=== PATIENT | female | born 1985 | race American Indian/Alaskan Native ===

== ENCOUNTER 2017-02-10 17:44 | Inpatient (IN) | payer MEDICAID ==
[2017-02-10] MEDS ORDERED: LACTATED RINGERS 2,000 ML ONE (19:14)
[2017-02-10] MEDS ORDERED: POLYCILLIN/NS 2 GM/100 ML 2 GM/100 ML BAG IV ONE ×2 (19:14→19:20)
[2017-02-10] MEDS ORDERED: ePHEDrine SULFATE IV PRN (19:20)
[2017-02-10] MEDS ORDERED: BRETHINE IVP PRN (19:20)
[2017-02-10] MEDS ORDERED: STADOL IV PRN (19:20)
[2017-02-10] MEDS ORDERED: ZOFRAN IV PRN ×2 (19:20→21:20)
[2017-02-10] MEDS ORDERED: SUBLIMAZE IV PRN (19:20)
[2017-02-10] MEDS ORDERED: NARCAN 0.4 MG/1 ML IV PRN (19:20)
[2017-02-10] MEDS ORDERED: MINERAL OIL PO PRN (19:20)
[2017-02-10] MEDS ORDERED: XYLOCAINE 2% INFILTRATI ONE (19:20)
[2017-02-10] MEDS ORDERED: BRETHINE SUB-Q PRN (19:20)
--- NOTE | 2017-02-10 19:54 | History and Physical Report ---
History of Present Illness Date of examination: 02/10/17 Date of admission: 02/10/17 17:45 Chief complaint: contractions History of present illness: Pt is a 31 year old -[place] female at 38w2d who presents with contractions for one hour prior to presentation and advanced cervical dilation of 6 cm. She had SROM while in triage at 1910- clear fluid. She denies vaginal bleeding. She has had care with Dr Elle Read which per pt has been uncomplicated. labs are unavailable at this time. She is GBS unknown. Past History Past Medical History: no pertinent history Past Surgical History: no surgical history Family/Genetic History: other (hypotension ) Social history: no significant social history - Obstetrical History Expected Date of Delivery: 02/22/17 Actual Gestation: 38 Week(s) 2 Day(s) : 7 Para: 5 Hx # Term Pregnancies: 4 Number of Pregnancies: 1 Spontaneous Abortions: 1 Induced : 0 Number of Living Children: 4 Medications and Allergies Allergies Allergy/AdvReac Type Severity Reaction Status Date / Time No Known Allergies Allergy Verified 03/17/16 11:13 Home Medications Medication Instructions Recorded Confirmed Last Taken Type No Known Home Medications [No 03/07/16 02/10/17 Unknown History Reported Home Medications] Active Meds: Active Medications Butorphanol Tartrate (Stadol) 2 mg IV Q2H PRN PRN Reason: Pain , Severe (7-10) Fentanyl (Sublimaze) 100 mcg IV Q2H PRN PRN Reason: Labor Pain Ampicillin Sodium (Polycillin/Ns 1 Gm/50 Ml) 1 gm in 50 mls @ 100 mls/hr IV Q4H FELIPA PRN Reason: Protocol Ampicillin Sodium (Polycillin/Ns 2 Gm/100 Ml) 2 gm in 100 mls @ 100 mls/hr IV ONCE ONE PRN Reason: Protocol Stop: 02/10/17 20:19 Lactated Ringer's (Lactated Ringers) 1,000 mls @ 125 mls/hr IV DIRECT FELIPA Oxytocin/Sodium Chloride (Pitocin/Ns 20 Unit/1000ml Drip) 20 units in 1,000 mls @ 125 mls/hr IV DIRECT FELIPA Mineral Oil (Mineral Oil) 30 ml PO QHS PRN PRN Reason: Constipation Naloxone HCl (Narcan 0.4 Mg/1 Ml) 0.1 mg IV Q2MIN PRN PRN Reason: Res Rate </= 8 or 02 SAT < 92% Ondansetron HCl (Zofran) 4 mg IV Q8H PRN PRN Reason: Nausea And Vomiting Review of Systems All systems: negative - Vital Signs Vital signs: Vital Signs Temp Pulse Resp BP Pulse Ox 97.5 F L 89 18 141/92 97 02/10/17 19:27 02/10/17 19:27 02/10/17 19:27 02/10/17 19:27 02/10/17 19:27 Temp Pulse Resp BP Pulse Ox 97.5 F L 89 18 141/92 97 02/10/17 19:27 02/10/17 19:27 02/10/17 19:27 02/10/17 19:27 02/10/17 19:27 - Physical Exam Breasts: Positive: deferred Cardiovascular: Regular rate Lungs: Positive: Clear to auscultation Abdomen: Positive: soft (gravid ) Genitourinary (Female): Positive: normal external genitalia Uterus: Positive: enlarged (gravid ) Extremities: Positive: normal - Obstetrical FHR: category 2 Uterine Contraction Monitor Mode: External Cervical Dilatation: 7 (per RN ) Cervical Effacement Percentage: 90 station: 0 Uterine Contraction Pattern: Regular Uterine Tone Measurement Phase: Resting Uterine Contraction Intensity: Strong/Firm Results All other labs normal. Assessment and Plan A: IUP at 38w2d Active labor Grandmultiparity GBS unknown P: Admit to labor and delivery GBS prophylaxis Routine intrapartum care
--- NOTE | 2017-02-10 19:59 | Procedure Note ---
OB Delivery Note - Delivery Date of Delivery: 02/10/17 Surgeon: PARISH LION Estimated blood loss: other (400 mL) - Vaginal Delivery presentation: vertex Delivery position: OA Intrapartum events: meconium (terminal meconium ), precipitous labor- <3hr Delivery induction: none Delivery monitor: external FHT, external uterine Route of delivery: Delivery placenta: spontaneous Episiotomy: none Delivery laceration: none, other (vaginal abrasion ) Anesthesia: intravenous Delivery comments: Pt rapidly progressed from 7 cm to complete/complete/+2 and pushed to deliver a viable female via over intact perineum under IV anesthesia. Head delivered rapidly in OA position followed quickly by shoulders and body. Terminal meconium noted. placed on maternal abdomen and bulb suctioned. Cord clamped and cut. Cord blood collected. Placenta delivered spontaneously. Vagina and perineum explored. No lacerations noted. Vaginal abrasion hemostatic. EBL 400 mL. - Infant A at 1 minute: 8 at 5 minutes: 9 Infant Gender: Female (3154g (6lb 15 oz))
[2017-02-10] MEDS ORDERED: LACTATED RINGERS 1,000 ML IV SCH (20:00)
[2017-02-10] MEDS ORDERED: PITOCin/NS 20 UNIT/1000ML DRIP 20 UNITS/1,000 ML BAG IV SCH ×2 (20:00→21:20)
[2017-02-10 20:21] LABS: Hematocrit 31.7 % (30.3-42.9); Hemoglobin 10.3 gm/dl (10.1-14.3); Mean Corpuscular HGB Conc 33 % (30-34); Mean Corpuscular Volume 76 fl (79-97); Platelet Count 190 K/mm3 (140-440); Red Blood Count 4.14 M/mm3 (3.65-5.03); White Blood Count 9.4 K/mm3 (4.5-11.0)
[2017-02-10 20:22] LABS: Mean Corpuscular Hemoglobin 25 pg (28-32)
[2017-02-10] MEDS ORDERED: LANSINOH TP PRN (21:20)
[2017-02-10] MEDS ORDERED: DULCOLAX PR PRN (21:20)
[2017-02-10] MEDS ORDERED: PHENERGAN PR PRN (21:20)
[2017-02-10] MEDS ORDERED: BENADRYL PO PRN (21:20)
[2017-02-10] MEDS ORDERED: TYLENOL PO PRN (21:20)
[2017-02-10] MEDS ORDERED: DERMOPLAST TP PRN (21:20)
[2017-02-10] MEDS ORDERED: SODIUM CHLORIDE FLUSH SYRINGE 10 ML IV NR (21:20)
[2017-02-10] MEDS ORDERED: TUCKS PAD TP PRN (21:20)
[2017-02-10] MEDS ORDERED: PHENERGAN PO PRN (21:20)
[2017-02-10] MEDS: NORCO 5/325 PO PRN (22:24)
[2017-02-10] MEDS: FEOSOL PO SCH (22:25)
[2017-02-10] MEDS ORDERED: POLYCILLIN/NS 1 GM/50 ML 1 GM/50 ML BAG IV SCH (23:30)
[2017-02-11] MEDS: MOTRIN PO SCH ×3 (00:17→18:44)
[2017-02-11] MEDS ORDERED: BOOSTRIX IM ONE (06:00)
[2017-02-11] MEDS ORDERED: M-M-R II VACCINE SUB-Q ONE (06:00)
[2017-02-11 09:30] LABS: Hematocrit 31.1 % (30.3-42.9)
--- NOTE | 2017-02-11 10:18 | Progress Note ---
Assessment and Plan A: PPD#1 s/p at term P: Routine care. Obtain prenatals tomorrow once primary provider returns. Subjective - Subjective Date of service: 02/11/17 Principal diagnosis: s/p at term Interval history: No overnight issues. Patient reports: voiding normally, pain well controlled, ambulating normally : doing well Objective - Vital Signs Latest vital signs: Vital Signs Temp Pulse Pulse Pulse Resp BP BP 02/11/17 07:23 98.5 F 74 18 110/80 02/10/17 20:52 97.7 F 84 18 137/93 02/10/17 20:51 82 137/93 02/10/17 20:46 79 02/10/17 20:41 72 02/10/17 20:36 92 H 143/93 02/10/17 20:31 94 H 02/10/17 20:26 98.3 F 86 96 H 18 130/88 02/10/17 20:21 77 130/88 02/10/17 20:16 76 02/10/17 20:11 98.5 F 89 84 18 137/79 02/10/17 20:06 89 137/79 02/10/17 20:01 81 02/10/17 19:56 98.7 F 87 18 02/10/17 19:51 133/81 02/10/17 19:41 98.5 F 81 18 133/81 02/10/17 19:30 18 02/10/17 19:27 97.5 F L 89 18 141/92 Pulse Ox 02/11/17 07:23 02/10/17 20:52 98 02/10/17 20:51 02/10/17 20:46 99 02/10/17 20:41 100 02/10/17 20:36 99 02/10/17 20:31 100 02/10/17 20:26 100 02/10/17 20:21 100 02/10/17 20:16 99 02/10/17 20:11 100 02/10/17 20:06 99 02/10/17 20:01 98 02/10/17 19:56 98 02/10/17 19:51 02/10/17 19:41 98 02/10/17 19:30 02/10/17 19:27 97 Intake and Output 02/10/17 02/11/17 02/11/17 22:59 06:59 14:59 Intake Total 700 Output Total 450 1000 Balance -450 -300 Intake: Oral 300 Intake, Free Water 400 Output: Urine 450 1000 Void 450 1000 Other: Total, Intake Amount 300 Total, Output Amount 450 400 # Voids Void 1 1 Weight 59.421 kg Estimated Blood Loss 400 - Exam Breasts: Present: deferred Cardiovascular: Present: Regular rate Lungs: Present: Clear to auscultation Abdomen: Present: soft Uterus: Present: fundal height at umbilicus Extremities: Present: normal - Labs Labs: Abnormal lab results 02/10/17 02/11/17 Range/Units 18:45 08:51 Hgb 10.0 L (10.1-14.3) gm/dl MCV 76 L (79-97) fl MCH 25 L (28-32) pg RDW 16.0 H (13.2-15.2) %
[2017-02-11] MEDS: NORCO 5/325 PO PRN (10:45)
[2017-02-11] MEDS: MILK OF MAGNESIA PO PRN (16:26)
[2017-02-11] MEDS: FEOSOL PO SCH (18:46)
[2017-02-11] MEDS: PRENATAL VITAMIN PO SCH (18:46)
[2017-02-12] MEDS: MOTRIN PO SCH ×3 (00:45→12:13)
[2017-02-12] MEDS: FEOSOL PO SCH ×2 (00:46→10:40)
[2017-02-12] MEDS: MILK OF MAGNESIA PO PRN (00:46)
[2017-02-12 09:23] VITALS: BP 134/83
[2017-02-12] MEDS: PRENATAL VITAMIN PO SCH (10:40)
--- NOTE | 2017-02-12 13:42 | Discharge Summary ---
Providers - Providers Date of Admission: 02/10/17 17:45 Date of discharge: 02/12/17 Attending physician: JAYNA ERWIN 02/10/17 21:20 Consult to School Psychologist Assistant [CONS] Routine Reason For Exam: assistance with , SNS Primary care physician: JAYNA ERWIN Hospitalization Reason for admission: active labor Delivery: complications: none Discharge diagnosis: IUP at term delivered [place] baby: female Condition at discharge: Good Disposition: DISCHARGED TO HOME OR SELFCARE Plan - Discharge Medications Prescriptions: HYDROcodone/APAP 5-325 [Powell 5/325] 1 each PO Q6HR PRN #20 tablet PRN Reason: Pain Ibuprofen [Motrin] 800 mg PO Q8HR PRN #30 tablet PRN Reason: Pain - Provider Discharge Summary Activity: routine, no sex for 6 weeks, no heavy lifting 4 weeks, no strenuous exercise Diet: routine Instructions: routine Additional instructions: [] Smoking cessation referral if applicable(refer to patient education folder for contact #) [] Refer to [facility] Booklet Call your doctor immediately for: * Fever > 100.5 * Heavy vaginal bleeding ( >1 pad per hour) * Severe persistent headache * Shortness of breath * Reddened, hot, painful area to leg or breast * Drainage or odor from incision. * Keep incision clean and dry at all times and follow doctor's instructions regarding bathing/showering - Follow up plan Follow up: JAYNA ERWIN MD [Primary Care Provider] - 7 Days
== END 2017-02-12 18:42 | disposition home or self-care (01) | DRG 775 ==
LOC: TRG 17:44 → LD 17:45 → TRG 17:46 → OB 21:40
PROVIDERS: ADMIT Obstetrics & Gynecology; ATTEND Obstetrics & Gynecology
PROC: 10E0XZZ Delivery of Products of Conception, External Approach (ICD-10-PCS; principal; 2017-02-10)
DX: O62.3 Precipitate labor (principal); O77.0 Labor and delivery complicated by meconium in amniotic fluid; Z3A.38 38 weeks gestation of pregnancy; Z37.0 Single live birth; O43.193 Other malformation of placenta, third trimester; O09.43 Supervision of pregnancy with grand multiparity, third trimester
CPT/HCPCS: 36415; 85014; 85018; 85027; 86850; 86900; 86901; 99211; G0463; J0290; J2590; J3010; J7120

== ENCOUNTER 2017-03-07 07:30 | Day surgery (SDC) | payer MEDICAID ==
--- NOTE | 2017-03-06 23:57 | Short Stay Summary ---
Short Stay Documentation Date of service: 03/07/17 Narrative H&P: Patient is a 31 year old who presents for elective sterilization 4 weeks s/ p delivery of f female infant. - History Principal diagnosis: Elective Sterilization H&P: obtained from office Past Medical History: No medical history Past Surgical History: No surgical history Social history: - Allergies and Medications Current Medications: Allergies No Known Allergies Allergy (Verified 03/01/17 16:52) Home Medications Medication Instructions Recorded Confirmed Last Taken Type No Known Home Medications [No 03/01/17 03/01/17 Unknown History Reported Home Medications] Active Medications Famotidine (Pepcid) 20 mg PO PREOP NR Stop: 03/07/17 18:00 Sodium Chloride (Nacl 0.9% 1000 Ml) 1,000 mls @ 75 mls/hr IV DIRECT FELIPA Stop: 03/07/17 18:00 Metoclopramide HCl (Reglan) 10 mg PO PREOP NR Stop: 03/07/17 18:00 Midazolam HCl (Versed) 2 mg IV PREOP NR Stop: 03/07/17 23:59 - Physical exam General appearance: no acute distress Integumentary: no rash, no growths Lungs: Clear to auscultation, Normal air movement Breasts: deferred Heart: Regular rate, Normal S1, Normal S2 Gastrointestinal: normal, normoactive bowel sounds Female Genitourinary: deferred Rectal Exam: deferred Extremities: no ischemia, pulses intact, pulses symmetrical - Brief post op/procedure progress note Date of procedure: 03/07/17 Pre-op diagnosis: Undesired fertilty Post-op diagnosis: same Procedure: Laparoscopic Salpingectomy- bilateral Anesthesia: GETA Findings: Normal uterus, tubes and ovaries Surgeon: JAYNA ERWIN Estimated blood loss: minimal Pathology: list (right and left tubes) Specimen disposition: to lab Condition: stable - Hospital course Hospital course: Unremarkable - Disposition Condition at discharge: Good Disposition: DISCHARGED TO HOME OR SELFCARE Short Stay Discharge Plan Activity: no restrictions, advance as tolerated Weight Bearing Status: Weight Bear as Tolerated Diet: regular Wound: keep clean and dry Follow up with: JAYNA ERWIN MD [Primary Care Provider] - 14 Days Forms: Outpatient Surgery DC Inst. Prescriptions: Ibuprofen [Motrin] 800 mg PO Q8HR PRN #40 tablet PRN Reason: Pain oxyCODONE /ACETAMINOPHEN [Percocet 5/325 mg] 1 tab PO ONCE PRN #40 tablet PRN Reason: Pain, Moderate (4-6)
[~2017-03-07 07:30] MED LIST: PEPCID PO NR; REGLAN PO NR; VERSED IV NR
[2017-03-07] MEDS ORDERED: DIPRIVAN 10 MG/ML IV ONE (07:39)
[2017-03-07] MEDS ORDERED: SUBLIMAZE ONE ×2 (07:39→09:22)
[2017-03-07] MEDS ORDERED: XYLOCAINE MPF 2% ONE (07:40)
[2017-03-07] MEDS ORDERED: MARCAINE 0.25% INFILTRATI ONE ×2 (07:50→08:08)
[2017-03-07] MEDS ORDERED: METHYLENE BLUE ONE (07:51)
--- NOTE | 2017-03-07 08:06 | Anesthesia Day of Surgery ---
Anesthesia Day of Surgery - Day of Surgery Patient Examined: Yes Patient H&P Reviewed: Yes Patient is NPO: Yes Beta Blockers: No
--- NOTE | 2017-03-07 08:06 | Anesthesia Consultation ---
Anesthesia Consult and Med Hx Date of service: 03/07/17 - Airway Anesthetic Teeth Evaluation: Chipped ROM Head & Neck: Adequate Mental/Hyoid Distance: Adequate Mallampati Class: Class I Intubation Access Assessment: Good - Pulmonary Exam CTA: Yes - Cardiac Exam Cardiac Exam: RRR - Pre-Operative Health Status ASA Pre-Surgery Classification: ASA1 Proposed Anesthetic Plan: General - Pulmonary Hx Smoking: No Hx Asthma: No Hx Respiratory Symptoms: No SOB: No COPD: No Home Oxygen Therapy: No Hx Pneumonia: No Hx Sleep Apnea: No - Cardiovascular System Hx Hypertension: Yes (pih) Hx Heart Attack/AMI: No Hx Angina: No Hx Percutaneous Transluminal Coronary Angioplasty (PTCA): No Hx Pacemaker: No Hx Internal Defibrillator: No Hx Valvular Heart Disease: No - Central Nervous System Hx Neuromuscular Disorder: No Hx Seizures: No Hx Psychiatric Problems: No - Gastrointestinal Hx Gastroesophageal Reflux Disease: No - Endocrine Hx Renal Disease: No Hx End Stage Renal Disease: No Hx Liver Disease: No Hx Insulin Dependent Diabetes: No Hx Non-Insulin Dependent Diabetes: No Hx Hypothyroidism: No Hx Hyperthyroidism: No - Hematic Hx Anemia: No Hx Sickle Cell Disease: Yes (trait only) - Other Systems Hx Alcohol Use: Yes Hx Cancer: No
[2017-03-07] MEDS ORDERED: NACL 0.9% IR ONE (08:08)
[2017-03-07] MEDS ORDERED: DECADRON ONE (08:30)
[2017-03-07] MEDS: NACL 0.9% 1000 ML 1,000 ML IV SCH ×2 (08:34→11:13)
[2017-03-07] MEDS ORDERED: ANCEF/STERILE WATER 2 GM/20 ML 2 GM/20 ML SYRINGE IV NR (09:00)
[2017-03-07] MEDS ORDERED: ZOFRAN ONE (09:27)
[2017-03-07] MEDS ORDERED: NEOSTIGMINE ONE (09:28)
[2017-03-07] MEDS ORDERED: ROBINUL ONE (09:28)
[2017-03-07] MEDS ORDERED: ZEMURON IV ONE (09:28)
[2017-03-07] MEDS ORDERED: APRESOLINE ONE (09:58)
[2017-03-07] MEDS ORDERED: DEMEROL ONE (10:21)
[2017-03-07] MEDS ORDERED: APRESOLINE IV PRN (10:23)
[2017-03-07] MEDS ORDERED: DEMEROL IV PRN (10:24)
[2017-03-07] MEDS ORDERED: DILAUDID IV PRN (10:30)
[2017-03-07] MEDS ORDERED: PERCOCET 5/325 PO PRN (10:30)
[2017-03-07 13:14] VITALS: BP 142/85
--- NOTE | 2017-03-07 16:06 | Post Anesthesia Evaluation ---
- Post Anesthesia Evaluation Patient Participated: Yes Airway Patent: Yes Stable Respiratory Function: Yes Nausea/Vomiting: No Temp > 96.8F: Yes Pain Manageable: Yes Adequeate Hydration: Yes Anesthesia Complications: No Block Receding Appropriately: Not Applicable Patient on Ventilator: No
--- NOTE | 2017-03-16 16:26 | Operative Report ---
PREOPERATIVE DIAGNOSIS: Undesired fertility. POSTOPERATIVE DIAGNOSIS. Undesired fertility. PROCEDURE: Bilateral partial salpingectomy, laparoscopic approach. SURGEON: Rafaela Read MD ANESTHESIA: General. ESTIMATED BLOOD LOSS: Minimal. COMPLICATIONS: None. SPECIMENS: Portion of right and left fallopian tubes. FINDINGS: Normal uterus and ovaries. DESCRIPTION OF PROCEDURE: The patient taken to the OR with IV running in place. She was properly identified as herself. She was given general anesthesia and placed in dorsal lithotomy position and prepped and draped in normal sterile fashion. Attention was turned to the patient's vagina. The cervix was visualized with a speculum. An acorn cannula was placed to the cervix to provide a means to manipulate the uterus. Following this, the bladder was drained approximately 200 mL of clear yellow urine. The speculum was then removed. Surgeon's gloves were changed and attention was turned to the patient's abdomen. A small umbilical incision was made. Through this incision, a 5 mm trocar was placed. Laparoscope confirmed intraabdominal placement. Survey of the abdomen revealed normal anatomy. A second trocar was placed in the left lower quadrant. Through this incision, a 5 mm trocar was placed with the patient in Trendelenburg position. Both tubes were identified and the tubes were followed to the fimbriated end. They were then cauterized along the edge of the broad ligament and then transected at the level of the cornua. Following this, each tube was removed out through the left lower quadrant port. There was excellent hemostasis noted at the end of this procedure. At this point, all the instruments were removed from the patient's abdomen and pelvis. The skin was closed with 4-0 Monocryl. She was then awakened and taken to recovery in stable condition. She tolerated the procedure well. The sponge, lap, needle, and instrument counts were correct x2. JOB# [id number] MARCK/ELIAS
== END 2017-03-07 12:35 | disposition home or self-care (01) ==
LOC: OR 07:30
PROVIDERS: ATTEND Obstetrics & Gynecology
DX: Z30.2 Encounter for sterilization (principal); I10 Essential (primary) hypertension; D57.3 Sickle-cell trait; Z72.89 Other problems related to lifestyle
CPT/HCPCS: 58670; 81025; 88302; J0360; J1100; J2175; J2250; J2405; J2704; J2710; J3010; J7030; Q9968

== ENCOUNTER 2021-06-08 08:45 | Emergency (ER) | payer BC, MEDICAID, SELFPAY ==
[2021-06-08 08:57] VITALS: BP 112/77
--- NOTE | 2021-06-08 10:57 | Emergency Department Report ---
- General Chief Complaint: Pain General Stated Complaint: BODY PAIN X2DAYS Time Seen by Provider: 06/08/21 10:50 Source: patient Mode of arrival: Ambulatory Limitations: No Limitations - History of Present Illness Initial Comments: Patient is a 35-year-old female presents emergency room complaints of URI symptoms that began 2 days ago. She has associated generalized body aches, fatigue, generalized weakness, rhinorrhea. She denies any fever, vomiting, diarrhea, cough, urinary symptoms, dark urine, shortness of breath, chest pain, abdominal pain. Past medical history of sickle cell trait. She denies any daily medications. No allergies to medications. She has not been vaccinated for COVID-19. She has not been tested for COVID-19. - Related Data Previous Rx's Medication Instructions Recorded Last Taken Type Ibuprofen [Motrin] 800 mg PO Q8HR PRN #40 tablet 03/07/17 Unknown Rx oxyCODONE /ACETAMINOPHEN [Percocet 1 tab PO ONCE PRN #40 tablet 03/07/17 Unknown Rx 5/325 mg] Allergies Allergy/AdvReac Type Severity Reaction Status Date / Time No Known Allergies Allergy Verified 06/08/21 08:51 ED Review of Systems ROS: Stated complaint: BODY PAIN X2DAYS Other details as noted in HPI Comment: All other systems reviewed and negative ED Past Medical Hx - Past Medical History Hx Hypertension: Yes (pih) Hx Heart Attack/AMI: No Hx Congestive Heart Failure: No Hx Diabetes: No Hx Deep Vein Thrombosis: No Hx Liver Disease: No Hx Renal Disease: No Hx Sickle Cell Disease: Yes (trait only) Hx Seizures: No Hx Asthma: No Hx COPD: No Hx HIV: No - Surgical History Hx Pacemaker: No Hx Internal Defibrillator: No Additional Surgical History: D&C - Social History Smoking Status: Never Smoker Substance Use Type: None - Medications Home Medications: Home Medications Medication Instructions Recorded Confirmed Last Taken Type Ibuprofen [Motrin] 800 mg PO Q8HR PRN #40 tablet 03/07/17 Unknown Rx oxyCODONE /ACETAMINOPHEN [Percocet 1 tab PO ONCE PRN #40 tablet 03/07/17 Unknown Rx 5/325 mg] ED Physical Exam - General Limitations: No Limitations General appearance: alert, in no apparent distress - Head Head exam: Present: atraumatic, normocephalic - Eye Eye exam: Present: normal appearance - ENT ENT exam: Present: normal orophraynx, mucous membranes moist, TM's normal bilaterally, normal external ear exam - Respiratory Respiratory exam: Present: normal lung sounds bilaterally. Absent: respiratory distress, wheezes, rales, rhonchi, stridor, chest wall tenderness, accessory muscle use, decreased breath sounds, prolonged expiratory - Cardiovascular Cardiovascular Exam: Present: regular rate, normal rhythm, normal heart sounds. Absent: systolic murmur, diastolic murmur, rubs, gallop - Neurological Exam Neurological exam: Present: alert, oriented X3 - Psychiatric Psychiatric exam: Present: normal affect, normal mood - Skin Skin exam: Present: warm, dry, intact ED Course Vital Signs 06/08/21 08:55 Temperature 98.7 F Pulse Rate 97 H Respiratory 16 Rate Blood Pressure 112/77 O2 Sat by Pulse 99 Oximetry ED Medical Decision Making - Medical Decision Making Patient is a 35-year-old female presents emergency room complaints of URI symptoms that began 2 days ago. She has associated generalized body aches, fatigue, generalized weakness, rhinorrhea. She denies any fever, vomiting, diarrhea, cough, urinary symptoms, dark urine, shortness of breath, chest pain, abdominal pain. Past medical history of sickle cell trait. She denies any daily medications. No allergies to medications. She has not been vaccinated for COVID-19. She has not been tested for COVID-19. Vitals are normal. No abnormality on physical examination as documented in chart, breath sounds are clear bilaterally, no wheezing, no rales, no rhonchi, good air movement. Symptoms appear likely consistent with viral URI. Patient is presenting with the symptoms during COVID-19 pandemic, discussed the possibility of COVID-19 with patient, discussed return precautions, discussed outpatient testing. Advised patient Please increase your fluid intake over the next several days. May take Tylenol as needed for fever or body aches. May take [id number] cold symptom relief medication such as Mucinex or TheraFlu. Get plenty of rest. Follow-up with a primary care doctor for reexamination. Return to emergency room immediately for any new or worsening symptoms including but not limited to difficulty breathing, shortness of breath, severe chest pain, unable to tolerate by mouth intake, etc. recommend for you to get outpatient COVID-19 testing and to self quarantine for 10 days from the onset of your symptoms if positive. Critical care attestation.: If time is entered above; I have spent that time in minutes in the direct care of this critically ill patient, excluding procedure time. ED Disposition Clinical Impression: URI (upper respiratory infection) Qualifiers: URI type: unspecified URI Qualified Code(s): J06.9 - Acute upper respiratory infection, unspecified Disposition: 01 HOME / SELF CARE / HOMELESS Is pt being admited?: No Does the pt Need Aspirin: No Condition: Stable Instructions: COVID-19, Viral Respiratory Infection Additional Instructions: Please increase your fluid intake over the next several days. May take Tylenol as needed for fever or body aches. May take [id number] cold symptom relief medication such as Mucinex or TheraFlu. Get plenty of rest. Follow-up with a primary care doctor for reexamination. Return to emergency room imme diately for any new or worsening symptoms including but not limited to difficulty breathing, shortness of breath, severe chest pain, unable to tolerate by mouth intake, etc. recommend for you to get outpatient COVID-19 testing and to self quarantine for 10 days from the onset of your symptoms if positive. Referrals: FRANCY GALVEZ MD [Staff Physician] - 2-3 Days [facility] [Provider Group] - 2-3 Days Forms: Work/School Release Form(ED) Time of Disposition: 10:56 Print Language: ARMENIAN
== END 2021-06-08 11:33 | disposition home or self-care (01) ==
LOC: ED 08:45
DX: J06.9 Acute upper respiratory infection, unspecified (principal); I10 Essential (primary) hypertension; D57.3 Sickle-cell trait; Z98.890 Other specified postprocedural states
CPT/HCPCS: 99281